=== PATIENT | female | born 1945 | race Caucasian/White ===

== ENCOUNTER → 2016-08-11 | Outpatient (CLI) | payer OTHER | LOC: FIMAGING 12:25 | PROVIDERS: ATTEND Family Medicine | DX: N63 Unspecified lump in breast (principal) | CPT/HCPCS: 76641; G0206 ==

== ENCOUNTER → 2016-08-23 | Outpatient (CLI) | payer OTHER ==
[~2016-08-23] MED LIST: BUPIVACAINE 0.5% 10 ML SDV ONE; LIDO/EPI 1% **Not for Epidural 20 ML MDV ONE; LIDOCAINE 1% 300 MG/30 ML SDV ONE; THROMBIN (BOVINE) 5,000 UNIT VIAL TP ONE
== END ==
LOC: FIMAGING 07:13
PROVIDERS: ATTEND Family Medicine
PROC: 0HBU3ZX Excision of Left Breast, Percutaneous Approach, Diagnostic (ICD-10-PCS; principal; 2016-08-23)
DX: C50.912 Malignant neoplasm of unspecified site of left female breast (principal)
CPT/HCPCS: 19083; 88360; G0206

== ENCOUNTER → 2016-09-03 | Outpatient (CLI) | payer OTHER ==
[~2016-09-03] MED LIST changes: -BUPIVACAINE 0.5% 10 ML SDV ONE; +GADOBUTROL 10 ML VIAL IVP ONE; -LIDO/EPI 1% **Not for Epidural 20 ML MDV ONE; -LIDOCAINE 1% 300 MG/30 ML SDV ONE; -THROMBIN (BOVINE) 5,000 UNIT VIAL TP ONE
[2016-09-03 10:05] LABS: CREATININE 0.9 mg/dL (0.6-1.0); GLOMERULAR FILTRATION RATE > 60
== END ==
LOC: FIMAGING 09:01
PROVIDERS: ATTEND Surgery
DX: C50.412 Malignant neoplasm of upper-outer quadrant of left female breast (principal)
CPT/HCPCS: 0159T; A9585; C8908

== ENCOUNTER 2016-09-24 06:16 | Day surgery (SDC) | payer OTHER ==
[2016-09-24] MEDS ORDERED: ceFAZolin 2 GM/DEXTROSE 100 ML IV ONE (06:53)
[2016-09-24] MEDS ORDERED: LR 1,000 ML IV ONE (06:58)
[2016-09-24] MEDS ORDERED: LIDOCAINE 1% 2 ML INJ ID PRN (06:58)
--- NOTE | 2016-09-24 06:59 | PDHPUP ---
History & Physical Update H&P update statement: This history and physical update is based on an assessment of the patient which was completed after admission or registration (within 24 hours), but prior to the surgery/procedure. H&P update: H&P reviewed & patient examined, no change in patient's condition since H&P completed
[2016-09-24] MEDS ORDERED: LIDOCAINE 1% 2 ML INJ ONE (07:04)
[2016-09-24 07:17] VITALS: PULSE 69
[2016-09-24] MEDS ORDERED: BUPIVACAINE 0.5% 30 ML SDV ONE (09:58)
--- NOTE | 2016-09-24 10:06 | PDANEPAE ---
ANE History of Present Illness breast lumpectomy ANE Past Medical History - Cardiovascular History Hx Hypertension: No Hx Arrhythmias: No Hx Chest Pain: No Hx Coronary Artery / Peripheral Vascular Disease: No Hx CHF / Valvular Disease: No Hx Palpitations: No - Pulmonary History Hx COPD: No Hx Asthma/Reactive Airway Disease: No Hx Recent Upper Respiratory Infection: No Hx Oxygen in Use at Home: No Hx Sleep Apnea: No Sleep Apnea Screening Result - Last Documented: Negative - Neurologic History Hx Cerebrovascular Accident: No Hx Seizures: No Hx Dementia: No - Endocrine History Hx Diabetes: No - Renal History Hx Renal Disorders: No - Liver History Hx Hepatic Disorders: No - Neurological & Psychiatric Hx Hx Neurological and Psychiatric Disorders: No - Cancer History Hx Cancer: Yes Cancer History Comment: L BREAST - Congenital Disorder History Hx Congenital Disorders: No - GI History Hx Gastrointestinal Disorders: No - Other Health History Other Health History: NEG - Chronic Pain History Chronic Pain: No - Surgical History Prior Surgeries: BUNIONECTOMY R. TONSILLECTOMY. TUBAL LIGATION ANE Review of Systems Review of systems is: negative - Exercise capacity Exercise capacity: >=4 METS METS (RN): 4 METS - Systems Constitutional: Reports: no symptoms Cardiac: Reports: no symptoms Respiratory: Reports: no symptoms ANE Patient History - Allergies Allergies/Adverse Reactions: No Known Drug Allergies Allergy (Verified 09/19/16 12:00) - Home Medications Home Medications: Herbals/Supplements -Info Only 09/22/16 [Last Taken 09/22/16 08:00] - NPO status NPO Status: no food or drink >8 hours NPO Since - Liquids (Date): 09/23/16 NPO Since - Liquids (Time): 22:00 NPO Since - Solids (Date): 09/23/16 NPO Since - Solids (Time): 19:00 - Anes Hx Anes Hx: post operative nausea and vomiting - Smoking Hx Smoking Status: Former smoker - Alcohol Use Alcohol Use: Occasionally - Family Anes Hx Family Hx Anesthesia Complications: NEG ANE Labs/Vital Signs - Vital Signs Blood Pressure: 138/65 Heart Rate: 69 Respiratory Rate: 16 O2 Sat (%): 93 Height: 165.1 cm Weight: 65.771 kg ANE Physical Exam - Airway Mallampati Score: Class 2 Mouth exam: dentures - Pulmonary Pulmonary: no respiratory distress - Cardiovascular Cardiovascular: regular rate and rhythym - ASA Status ASA Status: II ANE Anesthesia Plan Anesthesia Plan: GA w LMA
[2016-09-24] MEDS ORDERED: MIDAZOLAM 2 MG/2 ML VIAL IVP ONE (10:07)
[2016-09-24] MEDS ORDERED: MIDAZOLAM 2 MG/2 ML VIAL ONE (10:09)
[2016-09-24] MEDS ORDERED: PROPOFOL 200 MG/20 ML VIAL ONE (10:11)
[2016-09-24] MEDS ORDERED: LIDOCAINE 2% 5 ML SDV ONE (10:11)
[2016-09-24] MEDS ORDERED: fentaNYL 100 MCG/2 ML INJ ONE (10:11)
[2016-09-24] MEDS ORDERED: DEXAMETHASONE 4 MG/ML VIAL ONE ×2 (10:15→10:39)
[2016-09-24] MEDS ORDERED: ONDANSETRON 4 MG/2 ML VIAL ONE (10:15)
[2016-09-24] MEDS ORDERED: KETOROLAC 30 MG/1 ML SDV ONE (11:08)
[2016-09-24] MEDS ORDERED: HYDROmorphONE/DILAUDID 1 MG/ML SYR IVP PRN ×2 (11:09)
[2016-09-24] MEDS ORDERED: fentaNYL 100 MCG/2 ML INJ IVP PRN ×2 (11:09)
[2016-09-24] MEDS ORDERED: NALOXONE HCL 0.4 MG/ML INJ IVP PRN (11:09)
[2016-09-24] MEDS ORDERED: ACETAMINOPHEN 500 MG TAB PO PRN (11:09)
[2016-09-24] MEDS ORDERED: OXYCODONE/APAP 5/325 TAB PO PRN (11:09)
[2016-09-24] MEDS ORDERED: PROMETHAZINE HCL 25 MG/ML INJ IVP PRN (11:09)
[2016-09-24] MEDS ORDERED: ONDANSETRON 4 MG/2 ML VIAL IVP PRN (11:09)
--- NOTE | 2016-09-24 11:21 | POSTOPPROG ---
Post Op Note Date of Operation: 09/24/16 Surgeon: Breanne Fung Blanking Press Operator: Kishore Anesthesiologist: Jacob Anesthesia: GET(General Endotracheal) Pre-op Diagnosis: invasive breast cancer Post-op Diagnosis: same Indication: 71 yo with invasive breast cancer Procedure: l needle localized lumpectomy, l sln Findings: negative lymph node Inf/Abcess present in the surg proc area at time of surgery?: No Depth: Superfical (Skin SQ) Specimen(s): lumpectomy, sln, margins
--- NOTE | 2016-09-24 11:40 | CPEKG ---
Heart Rate: 68 RR Interval: 882 P-R Interval: 156 QRSD Interval: 78 QT Interval: 416 QTC Interval: 443 P [place]: 62 QRS [place]: 21 EKG Severity - BORDERLINE ECG - EKG Impression: ATRIAL RHYTHM EKG Impression: BORDERLINE T WAVE ABNORMALITIES Electronically Signed By: Mychal Matias 27-Sep-2016 05:37:08
--- NOTE | 2016-09-24 12:01 | GOP ---
[f rep st] OPERATIVE REPORT DATE OF OPERATION: 09/24/2016 SURGEON: Breanne Fung MD SYSTEM DEVELOPMENT MANAGER: Ellen Novak, JOLANTA. ANESTHESIA: General. ANESTHESIOLOGIST: Dr. Jarred James. PREOPERATIVE DIAGNOSIS: Left lower outer invasive ductal carcinoma. POSTOPERATIVE DIAGNOSIS: Left lower outer invasive ductal carcinoma. PROCEDURE PERFORMED: Left needle localized lumpectomy, left sentinel lymph node. FINDINGS: Clip and mass within the specimen. [place] lymph node negative. SPECIMENS: Lumpectomy, sentinel lymph node, and margins. ESTIMATED BLOOD LOSS: 10 cc. INDICATIONS: The patient is a 71-year-old woman with invasive ductal carcinoma of the left breast. She presents for lumpectomy. DESCRIPTION OF PROCEDURE: The patient was brought into the operating room, placed supine on the table, and general anesthesia was administered. Her left breast was prepped and draped in the usual sterile fashion. I infiltrated all sites with 0.5% Marcaine prior to making incisions. I made an incision beneath the hair bearing portion on her axilla. I dissected down through the subcutaneous tissues and broke into the axillary space. I used the gamma probe to identify the sentinel lymph node. I grasped this with an Allis clamp and circumferentially dissected it. It measured over 600 Ex Vivo. The background was very quiet. Hemostasis was achieved. Next, I made an ellipse around the needle directed toward the lumpectomy site. I created superior and inferior skin flaps. I dissected down beyond the level of the wire. I marked this green anterior, red superior, yellow medial, blue inferior, orange lateral, black posterior. I submitted this to Radiology. I took additional margins, superior inked red, medial inked yellow, inferior inked blue, lateral inked orange and posterior inked black. These were submitted to Pathology for permanent. I marked the cavity with titanium clips. Hemostasis was achieved. Each wound was closed with 3-0 Vicryl followed by 4-0 Monocryl. Mastisol, Steri -Strips, and sterile dressings were applied. She was awakened in the operating room, extubated, transferred to PACU in stable condition. /[id number]/MODL MTDD
--- NOTE | 2016-09-24 12:19 | POSTANESTH ---
Post Anesthetic Evaluation Cardiovascular Status: Normal, Stable, Other, See Comment Respiratory Status: Normal, Stable Level of Consciousness/Mental Status: Can Participate in Eval Pain Control: Adequate, Prn Tx Ordered Nausea/Vomiting Control: Adequate, Prn Tx Ordered Complications Possibly Related to Anesthesia: None Noted (pt had PAF/Aflutter during surgery and again in PACU. Will F/U with cardiology next week. Upon further questioning, pt had these sx in past but neg w/u.)
[2016-09-24 12:48] VITALS: TEMP 96.8
[2016-09-24 13:03] VITALS: BP 118/78; RESP 19; O2SAT 94
== END 2016-09-24 13:44 | disposition home or self-care (01) ==
LOC: FIMAGING 06:16
PROVIDERS: ATTEND Surgery
DX: C50.412 Malignant neoplasm of upper-outer quadrant of left female breast (principal)
CPT/HCPCS: 19301; 38500; 76098; 78195; 93005; A9520; J0690; J1100; J1885; J2250; J2405; J2704; J3010

== ENCOUNTER → 2017-04-11 | Outpatient (CLI) | payer OTHER | LOC: FIMAGING 09:36 | PROVIDERS: ATTEND Surgery | DX: Z08 Encounter for follow-up examination after completed treatment for malignant neoplasm (principal); Z85.3 Personal history of malignant neoplasm of breast ==

== ENCOUNTER → 2018-04-12 | Outpatient (CLI) | payer OTHER | LOC: FIMAGING 08:38 | PROVIDERS: ATTEND Internal Medicine Hematology & Oncology | DX: Z12.31 Encounter for screening mammogram for malignant neoplasm of breast (principal); Z85.3 Personal history of malignant neoplasm of breast ==